=== PATIENT | female | born 1980 | race African-American/Black ===

== ENCOUNTER 2025-03-19 02:35 | Emergency (ER) | payer SELFPAY ==
[~2025-03-19] VITALS: Ht 170.2 cm; Wt 69.0 kg
[2025-03-19 02:48] VITALS: O2SAT 100
[2025-03-19 04:48] VITALS: BP 117/68; PULSE 71; RESP 18; TEMP 36.9; O2SAT 100
== END 2025-03-19 04:48 | disposition home or self-care (01) ==
LOC: ER 02:35
DX: R09.81 Nasal congestion (principal)
CPT/HCPCS: 99282